=== PATIENT | male | born 1980 ===

== ENCOUNTER 2018-01-08 15:03 | Emergency (ER) | payer MEDICAID ==
[2018-01-08 15:14] VITALS: BP 122/80; PULSE 108; RESP 18; TEMP 99; O2SAT 97
--- NOTE | 2018-01-08 15:43 | C.PDOC ---
History Of Present Illness 37 y/o male presents to the ER complaining of pain and swelling to the proximal interphalangeal joint of his left pinky which began after he hyperextended the pinky when he fell 3 weeks ago. Pt states that his pinky was wendy taped by a hand specialist. He had X-ray which was negative for fracture. Time Seen by Provider: 01/08/18 15:17 Chief Complaint (Nursing): Finger,Hand,&Wrist History Per: Patient History/Exam Limitations: no limitations Onset/Duration Of Symptoms: Days Current Symptoms Are (Timing): Still Present Severity: Moderate Past Medical History Reviewed: Historical Data, Nursing Documentation, Vital Signs Vital Signs: Last Vital Signs Temp 99 F 01/08/18 15:10 Pulse 108 H 01/08/18 15:10 Resp 18 01/08/18 15:10 BP 122/80 01/08/18 15:10 Pulse Ox 97 01/11/18 07:04 - Medical History PMH: Anxiety, Arthritis, Bipolar Disorder, Depression, Post Traumatic Stress Disorder Denies: Diabetes, Hepatitis, HIV, HTN, Seizures, Sexually Transmitted Disease Surgical History: No Surg Hx Family History: States: No Known Family Hx - Social History Hx Tobacco Use: Yes Hx Alcohol Use: Yes Hx Substance Use: Yes - Immunization History Hx Tetanus Toxoid Vaccination: No Hx Influenza Vaccination: No Hx Pneumococcal Vaccination: No Review Of Systems Musculoskeletal: Positive for: Hand Pain (left 5th finger pain) Physical Exam - Physical Exam Appears: Non-toxic, No Acute Distress Skin: Warm, Dry Extremity: Normal ROM (left 5th finger at proximal ip joint, mildly flexed, tender), Swelling (swelling to left 5th finger prox ip joint) Pulses: Left Radial: Normal, Right Radial: Normal Neurological/Psych: Oriented x3, Normal Speech, Normal Cognition, Normal Motor, Normal Sensation ED Course And Treatment O2 Sat by Pulse Oximetry: 97 (RA) Pulse Ox Interpretation: Normal Medical Decision Making Medical Decision Making: Progress: Patient given Motrin PO. Finger Splint applied. Disposition Counseled Patient/Family Regarding: Diagnosis, Need For Followup, Rx Given - Disposition Referrals: Garrett Luna MD [Staff Provider] - Disposition: HOME/ ROUTINE Disposition Time: 15:49 Condition: IMPROVED Additional Instructions: Please take ibuprofen for pain. Wear splint for comfort. Cold compresses to finger several tines a day to decrease swelling. 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 - Scribe Statement The provider has reviewed the documentation as recorded by the Lori Mendoza Provider Attestation All medical record entries made by the Lori were at my direction and personally dictated by me. I have reviewed the chart and agree that the record accurately reflects my personal performance of the history, physical exam, medical decision making, and the department course for this patient. I have also personally directed, reviewed, and agree with the discharge instructions and disposition.
== END 2018-01-08 15:55 | disposition home or self-care (01) ==
LOC: C.ER 15:03
DX: S63.617D Unspecified sprain of left little finger, subsequent encounter (principal); W19.XXXD Unspecified fall, subsequent encounter

== ENCOUNTER 2018-08-24 09:49 | Emergency (ER) | payer OTHER, MEDICAID ==
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
[2018-08-24 11:40] VITALS: BP 127/87; PULSE 88; RESP 20; TEMP 97.7
[2018-08-24 11:44] VITALS: O2SAT 95
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
--- NOTE | 2018-08-24 12:48 | RAD ---
Date of service: 08/24/2018 HISTORY: fall, chest injury, pleuritic pain COMPARISON: No prior. TECHNIQUE: Chest PA and lateral FINDINGS: LUNGS: Slight increased/coarse interstitial markings; rule out sequela of reactive/inflammatory airway disease or viral illness. There also appears to be some mild on atelectasis left medial lung base. PLEURA: No significant pleural effusion identified. No pneumothorax apparent. CARDIOVASCULAR: No aortic atherosclerotic calcification present. Normal cardiac size. No pulmonary vascular congestion. OSSEOUS STRUCTURES: Minor chronic appearing anterior stature loss of few mid thoracic segments VISUALIZED UPPER ABDOMEN: Normal. OTHER FINDINGS: None. IMPRESSION: Slight increased/coarse interstitial markings; rule out sequela of reactive/inflammatory airway disease or viral illness. There also appears to be some mild on atelectasis left medial lung base. .
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
== END 2018-08-24 12:42 | disposition home or self-care (01) ==
LOC: C.ER 09:49
DX: S16.1XXA Strain of muscle, fascia and tendon at neck level, initial encounter (principal); S50.00XA Contusion of unspecified elbow, initial encounter; S20.219A Contusion of unspecified front wall of thorax, initial encounter; S09.90XA Unspecified injury of head, initial encounter; V03.90XA Pedestrian on foot injured in collision with car, pick-up truck or van, unspecified whether traffic or nontraffic accident, initial encounter; Y93.01 Activity, walking, marching and hiking